=== PATIENT | female | born 1970 | race Caucasian/White ===

== ENCOUNTER → 2019-01-29 08:13 | Outpatient (CLI) | payer OTHER ==
--- NOTE | ~2019-01-29 | ST ---
PATIENT:LUZMA BENNETT MEDICAL RECORD: [id number] SEX: F LOCATION:[facility] ORDER #: ADMISSION DATE: 01/29/19 AGE OF PATIENT: 48 REFERRING PHYSICIAN: INTERPRETING PHYSICIAN: NATALYA TSAI MD DATE OF SERVICE: 01/29/2019 PROCEDURE: Nuclear stress test. INDICATION: Chest pain, family history of coronary artery disease. The patient was exercised on standard Refugio protocol for 8 minutes 7 seconds achieving greater than 85% of maximum target heart rate response with 26 mCi of sestamibi injected at peak stress, 9 mCi were used previously for rest images. FINDINGS: Gated SPECT reveals preserved ejection fraction at 67% with good wall motion and thickening and brightening throughout all segments. SPECT imaging Cardiolite was used as myocardial fusion agent. There is homogeneous uptake throughout all segments at rest and stress with no evidence of inducible ischemia or previous infarction. OVERALL IMPRESSION: 1. This is a normal nuclear stress test with no evidence of inducible ischemia or previous infarction. 2. Gated SPECT reveals a preserved ejection fraction at 67%. In this patient with ongoing symptomatology, the current scan does not suggest the presence of hemodynamically significant coronary artery disease. Evaluate noncardiac etiology of chest pain. TRANSINT:[id number] Voice Confirmation ID: [id number] DOCUMENT ID: [id number] NATALYA TSAI MD CC: Cailin CROWDER [id number] DICTATION DATE: 01/30/1936 [facility] PIE FILLING: 01/31/19 0058 DEP CLI 01/29/19 [facility] [address] [place] [address]
== END | disposition home or self-care (01) ==
LOC: D.HCCARDIO 08:13
PROVIDERS: ATTEND Internal Medicine Interventional Cardiology
DX: R07.89 Other chest pain (principal)